=== PATIENT | female | born 1965 ===

== ENCOUNTER 2024-07-04 05:56 | Day surgery (SDC) | payer OTHER ==
[2024-07-03 08:34] LABS: HEMATOCRIT 37.6 % (36.0-45.00); HEMOGLOBIN 12.5 g/dL (12.0-15.00); MEAN CELL VOLUME 83.4 fL (80.00-100.00); MEAN CORPUSCULAR HEMOGLOBIN 27.8 pg (27.00-32.0); MEAN CORPUSCULAR HGB CONC 33.4 g/dl (32.0-36.0); PLATELET COUNT 164 K/uL (150-450); RED CELL DISTRIBUTION WIDTH 15.5 % (11.5-14.5)
[2024-07-03 08:42] LABS: URINE APPEARANCE Clear; URINE BILIRRUBIN Negative (NEGATIVE); URINE BLOOD Negative; URINE COLOR Yellow; URINE GLUCOSE Negative (NEGATIVE); URINE KETONE Negative (NEGATIVE); URINE LEUKOCYTE Negative; URINE NITRATE Negative; URINE PROTEIN Negative (NEGATIVE); URINE UROBILINOGEN 0.2 E.U./dl
[2024-07-03 08:49] LABS: URINE BACTERIA 186.4 uL (0.0-1933); URINE EPITHELIAL CELLS 12.4 uL (0.0-38.8); URINE RBC 2.2 uL (0.0-20.8); URINE WBC 2.3 uL (0.0-23.2)
[2024-07-03 08:56] LABS: URINE CAST 0.45 uL (0.0-1.40)
[2024-07-03 09:00] LABS: ALBUMIN 3.6 gm/dL (3.4-5.0); BILIRUBIN TOTAL 0.57 mg/dL (0.3-1.2); CALCIUM 9.6 mg/dL (8.5-10.1); CREATININE SERUM 0.55 mg/dL (0.55-1.02); GFR 112.74; GLOBULINA 3.7 G/DL (2.4-3.5); INR 1.07; PARTIAL THROMBOPLASTIN TIME 37.1 SECONDS (22.0-34.0); POTASSIUM 4.94 mEq/L (3.5-5.1); PROTHROMBIN TIME 11.6 SECONDS (9.0-11.5); TOTAL PROTEIN 7.3 gm/dL (6.4-8.2)
[2024-07-04] MEDS ORDERED: BUPIVACAINE HCL 30 ML VIAL IJ ONE (13:45)
== END 2024-07-04 15:05 | disposition home or self-care (01) ==
LOC: CIR.AMB 05:56
PROVIDERS: ATTEND Orthopaedic Surgery Hand Surgery
DX: L03.012 Cellulitis of left finger (principal); L60.8 Other nail disorders; E11.9 Type 2 diabetes mellitus without complications; F41.0 Panic disorder [episodic paroxysmal anxiety]; M19.90 Unspecified osteoarthritis, unspecified site; E78.5 Hyperlipidemia, unspecified